=== PATIENT | male | born 1990 | race Caucasian/White ===

== ENCOUNTER 2017-08-20 12:08 | Emergency (ER) | payer OTHER ==
--- NOTE | 2017-08-20 13:25 | EDPHY ---
H & P Stated Complaint: ? C/spine fx;header during soccer game on Time Seen by Provider: 08/20/17 12:39 HPI/ROS: CHIEF COMPLAINT: Neck pain, abnormal x-ray HISTORY OF PRESENT ILLNESS: The patient is referred to the emergency department for evaluation of neck pain following an accident playing soccer. The patient reportedly injured his neck during a soccer game. He had primarily right posterior neck pain. His symptoms have increased over the past several days. He reports difficulty moving his neck. He denies complaints of acute numbness or weakness. The patient denies any complaints of headache, reported history of loss of consciousness, history of anticoagulant use or history of any acute visual complaints. The patient currently reports moderate right posterior neck pain which is worsened with palpation and movement. The patient has no prior history of cervical spine injury or fracture. The patient saw his primary care provider who ordered an outpatient cervical spine x-ray which demonstrated a possible C5 fracture. REVIEW OF SYSTEMS: A comprehensive 10 point review of systems is otherwise negative aside from elements mentioned in the history of present illness. Source: Patient Exam Limitations: No limitations - Personal History Current Tetanus Diphtheria and Acellular Pertussis (TDAP): Yes - Medical/Surgical History Other PMH: neg - Social History Smoking Status: Never smoked - Physical Exam Exam: General Appearance: Alert, no distress Head: Atraumatic Neck: Tenderness to palpation primarily in the right paracervical muscles, minimal midline tenderness to palpation, no step-off or deformity Respiratory: No chest wall tender, subcutaneous air, lungs clear bilaterally Cardiovascular: Regular rate and rhythm Abdomen: Abdomen is soft and nontender, pelvis stable Skin: No lacerations, No abrasion Back: No midline T/L/S pain Extremities: Nontender, full range of motion Neurological: A&Ox3, normal motor function, normal sensory exam Constitutional: Initial Vital Signs Temperature (C) 36.4 C 08/20/17 12:10 Heart Rate 83 08/20/17 12:10 Respiratory Rate 16 08/20/17 12:10 Blood Pressure 147/97 H 08/20/17 12:10 O2 Sat (%) 97 08/20/17 12:10 O2 Delivery Mode Room Air Allergies/Adverse Reactions: No Known Allergies Allergy (Verified 08/20/17 12:09) Home Medications: Medication Instructions Recorded No Medications [NO [place] 1 e[place] [facility] [place] Medical Decision Making - Diagnostics Imaging Results: Imaging Impressions Cervical Spine CT 08/20/17 12:39 Impression: 1. No evidence for acute fracture. 2. Mild multilevel degenerative disk and degenerative joint disease of the cervical spine from C3-C4 through C5-C6, as detailed above. 3. Mild reversal of the normal lordotic curvature which can be seen with positioning or muscle spasm. This was also reviewed by Dr. Justice Eugene, who concurs. Results called and discussed with Dr. Kaden Leger on 08/20/2017 at 1307 hours. ED Course/Re-evaluation: I reviewed the patient's outpatient cervical spine x-ray images. Given the questionable abnormality the patient was taken for a CT scan of the cervical spine which demonstrates no evidence of an acute fracture. The patient's examination is one consistent with a ligamentous and myofascial injury as he has primarily lateral neck pain. The patient is noted to be neurologically intact without evidence of a spinal cord injury. I do feel the patient can manage his injury and pain conservatively with NSAIDs. His primary care provider has been reportedly called in a prescription for a muscle relaxant. Differential Diagnosis: Differential diagnosis considered includes cervical spine fracture, cervical spine strain, spinal cord injury Departure - Departure Disposition: Home, Routine, Self-Care Clinical Impression: Cervical strain, acute Condition: Good Instructions: Acute Neck Pain (ED) Additional Instructions: 1. Take Ibuprofen or Motrin 600 mg by mouth three times a day. 2. Return to the emergency department for increasing pain, numbness, weakness or other concerns. 3. Please follow up with your primary care provider for any unimproved symptoms. 4. Limit strenuous activity, soccer play or heavy lifting until your symptoms have resolved. Referrals: Micky Wade MD [Primary Care Provider] - As per Instructions
[2017-08-20 13:34] VITALS: BP 134/86; PULSE 81; RESP 17; TEMP 99; O2SAT 96
== END 2017-08-20 13:33 | disposition home or self-care (01) ==
LOC: EDSTATUS 12:08
DX: S16.1XXA Strain of muscle, fascia and tendon at neck level, initial encounter (principal); X58.XXXA Exposure to other specified factors, initial encounter; Y99.8 Other external cause status; Y93.66 Activity, soccer